=== PATIENT | male | born 1970 | race Caucasian/White ===

== ENCOUNTER 2017-02-07 23:21 | Emergency (ER) | payer BC ==
[2017-02-07 23:30] VITALS: BP 159/99
--- NOTE | 2017-02-07 23:59 | EDM.PDOC ---
ED HPI GENERAL MEDICAL PROBLEM - General Chief Complaint: Laceration Stated Complaint: FELL AND SPLIT HEAD OPEN Time Seen by Provider: 02/07/17 23:35 Source of Information: Reports: Patient History Limitations: Reports: No Limitations - History of Present Illness INITIAL COMMENTS - FREE TEXT/NARRATIVE: This 46 yo male patient reports to the ED with a laceration to his right posterior scalp. The patient reports he was getting into the shower and slipped on some shampoo bottles causing him to fall and hit his head on the toilet. The patient reports he felt light headed for a little while after the fall, but feels better now. The patient applied pressure to the wound and controlled the bleeding prior to arrival in the ED. Onset: Today Duration: Minutes: Location: Reports: Head Quality: Reports: Ache, Dull Severity: Moderate Improves with: Reports: None Worsens with: Reports: None Context: Reports: Trauma Associated Symptoms: Reports: No Other Symptoms Treatments CONTINUOUS IMPROVEMENT INTERN: Reports: Dressing(s) Right Posterior Head Pain Score (Numeric/FACES): 2 - Related Data Allergies Allergy/AdvReac Type Severity Reaction Status Date / Time No Known Allergies Allergy Verified 02/07/17 23:38 Home Meds: Home Meds . [No Known Home Meds] 02/07/17 [History] Social & Family History - Tobacco Use Smoking Status *Q: Unknown Ever Smoked - Caffeine Use Caffeine Use: Reports: None - Recreational Drug Use Recreational Drug Use: No ED ROS GENERAL - Review of Systems Review Of Systems: ROS reveals no pertinent complaints other than HPI. ED EXAM, SKIN/RASH Exam: See Below Exam Limited By: No Limitations General Appearance: Alert, WD/WN, No Apparent Distress Eye Exam: Bilateral Eye: EOMI, Normal Inspection, PERRL Ears: Normal External Exam, Normal Canal, Hearing Grossly Normal, Normal TMs Nose: Normal Inspection, Normal Mucosa, No Blood Throat/Mouth: Normal Inspection, Normal Lips, Normal Teeth, Normal Gums, Normal Oropharynx, Normal Voice, No Airway Compromise Head: Other (The patient has a laceration to the right posterior scalp) Neck: Normal Inspection, Supple, Non-Tender, Full Range of Motion Respiratory/Chest: No Respiratory Distress, Lungs Clear, Normal Breath Sounds, No Accessory Muscle Use, Chest Non-Tender Cardiovascular: Normal Peripheral Pulses, Regular Rate, Rhythm, No Edema, No Gallop, No JVD, No Murmur, No Rub GI/Abdominal: Normal Bowel Sounds, Soft, Non-Tender, No Organomegaly, No Distention, No Abnormal Bruit, No Mass (Male) Exam: Deferred Rectal (Males) Exam: Deferred Back Exam: Normal Inspection, Full Range of Motion, NT Extremities: Normal Inspection, Normal Range of Motion, Non-Tender, No Pedal Edema, Normal Capillary Refill Neurological: Alert, Oriented, CN II-XII Intact, Normal Cognition, Normal Gait, Normal Reflexes, No Motor/Sensory Deficits Psychiatric: Normal Affect, Normal Mood Skin: Warm, Dry, Normal Color, No Rash Location, Skin: Head Characteristics: Linear Lymphatic: No Adenopathy ED SKIN PROCEDURES - Laceration/Wound Repair Right Posterior Head Lac/wound length in cm: 2.5 Appearance: Subcutaneous Distal NVT: Neuro & Vascular Intact Skin Prep: Chlorhexidine (Hibiciens) Exploration/Debridement/Repair: Wound Explored, in a Bloodless Field Closed with: Dale # of Sutures: 11 Drain Placement: No Sterile Dressing Applied: Nurse Tetanus Status Addressed: Yes Complications: No Course - Vital Signs Last Recorded V/S: Last Vital Signs Temp 36.6 C 02/07/17 23:29 Pulse 118 H 02/07/17 23:29 Resp 20 02/07/17 23:29 BP 159/99 H 02/07/17 23:29 Pulse Ox 100 02/07/17 23:29 Departure - Departure Time of Disposition: 23:56 Disposition: Home, Self-Care 01 Condition: fair Clinical Impression: Scalp laceration Qualifiers: Encounter type: initial encounter Qualified Code(s): S01.01XA - Laceration without foreign body of scalp, initial encounter - Discharge Information Instructions: Laceration Care, Adult, [id number] Forms: ED Department Discharge Care Plan Goals: The patient was advised of the examination results during the visit. The patient 's laceration margins were well approximated during the visit. The patient should have the dale removed in 7-10 days. The patient should keep the area clean and dry for the next 24 hours. If the patient has any additional symptoms or concerns, the patient may follow-up with his primary care facility or return to the emergency department.
== END 2017-02-08 00:07 | disposition home or self-care (01) ==
LOC: DL.ED 23:21
DX: S01.01XA Laceration without foreign body of scalp, initial encounter (principal); W18.12XA Fall from or off toilet with subsequent striking against object, initial encounter
CPT/HCPCS: 12001; 99282

== ENCOUNTER 2023-02-26 14:17 | Emergency (ER) | payer OTHER ==
[2023-02-26 15:25] VITALS: BP 121/75; PULSE 109
[2023-02-26 17:09] LABS: AMPHETAMINES,URINE NEGATIVE (NEGATIVE); APPEARANCE,URINE CLEAR (CLEAR); BARBITURATES,URINE NEGATIVE (NEGATIVE); BENZODIAZEPINE,URINE NEGATIVE (NEGATIVE); BILIRUBIN,URINE SMALL (NEGATIVE); COLOR,URINE AMBER (YELLOW); GLUCOSE,URINE NEGATIVE (NEGATIVE); KETONES,URINE 15 (NEGATIVE); LEUKOCYTE ESTERASE,URINE NEGATIVE (NEGATIVE); MDMA (ECSTASY), URINE NEGATIVE (NEGATIVE); METHADONE,URINE NEGATIVE (NEGATIVE); METHAMPHETAMINES,URINE NEGATIVE (NEGATIVE); NITRITE,URINE NEGATIVE (NEGATIVE); OCCULT BLOOD,URINE NEGATIVE (NEGATIVE); OPIATES,URINE NEGATIVE (NEGATIVE); OXYCODONE,URINE NEGATIVE (NEGATIVE); PHENCYCLIDINE,URINE NEGATIVE (NEGATIVE); PROTEIN,URINE TRACE (NEGATIVE); TCA,URINE NEGATIVE (NEGATIVE); UROBILINOGEN,URINE >=8.0 mg/dL (0.2-1.0)
[2023-02-26 17:18] LABS: EOSINOPHILS PERCENT AUTO 1.9 % (1.0-3.0); HEMATOCRIT 41.5 % (40.0-54.0); HEMOGLOBIN 14.4 g/dL (14.0-18.0); INR 1.2 (0.9-1.2); LYMPHOCYTES PERCENT AUTO 24.7 % (20.5-50.1); MEAN CORPUSCULAR HGB CONC 34.7 g/dL (33.0-35.0); MONOCYTES PERCENT AUTO 13.2 % (2-8); NEUTROPHILS PERCENT AUTO 59.2 % (42.2-75.2); PLATELET COUNT,PLT 113 10^3/uL (150-450); PROTHROMBIN TIME 12.1 SEC (9.0-12.0); PTT,PARTIAL THROMBOPLSTIN TIME 27.9 SEC (22.0-34.0); RED BLOOD CELL COUNT 4.37 10^6/uL (4.6-6.2)
[2023-02-26 17:23] LABS: EPITHELIAL CELLS,URINE RARE /HPF (NOT SEEN); HYALINE CASTS,URINE FEW; MUCUS,URINE MODERATE /LPF (NOT SEEN)
[2023-02-26 17:24] LABS: RBC,URINE 0-5 /HPF (0-5)
[2023-02-26 17:25] LABS: AMORPHOUS SEDIMENT,URINE FEW /HPF (NOT SEEN); BACTERIA,URINE RARE /HPF (0-FEW/HPF)
[2023-02-26 17:28] LABS: LACTIC ACID 5.1 mmol/L (0.4-2.0)
[2023-02-26 17:30] LABS: A/G RATIO 0.7; ALBUMIN 3.4 g/dL (3.4-5.0); ANION GAP 16.6 mEq/L (7-13); BILIRUBIN TOTAL 3.6 mg/dL (0.2-1.0); BUN/CREATININE RATIO 7.2 (No establ ref range); C-REACTIVE PROTEIN 1.6 mg/dL (0.0-0.9); CALCIUM 8.5 mg/dL (8.5-10.1); CREATININE 1.11 mg/dL (0.70-1.30); EST CRCL DRUG DOSING (CG) 88.45 mL/min; POTASSIUM,K 2.6 mmol/L (3.5-5.1); PROTEIN TOTAL,TP 8.2 g/dL (6.4-8.2); TSH ULTRASENSITIVE 1.94 uIU/mL (0.36-3.74)
[2023-02-26] MEDS ORDERED: MVI, Adult with Vitamin K 10 ML, Thiamine 100 MG, Folic Acid 1 MG in Lactated Ringers 1... IV ONE ×4 (17:45)
[2023-02-26] MEDS ORDERED: Potassium Chloride 20 MEQ in Premix Bag 1 BAG IV ONE (17:46)
[2023-02-26] MEDS ORDERED: Iopamidol 612 MG/ML 100 ML Bottle IVPUSH ONE (17:55)
[2023-02-26] MEDS ORDERED: Lactated Ringers 1,000 ML IV ONE (18:35)
[2023-02-26] MEDS ORDERED: Potassium Chloride 10% 20 MEQ/15 ML Soln 15 ML UD Cup ONE (18:53)
[2023-02-26] MEDS ORDERED: Potassium Chloride 10 MEQ Tab.ER PO ONE (19:32)
[2023-02-27] MEDS ORDERED: Potassium Chloride 10% 20 MEQ/15 ML Soln 15 ML UD Cup PO ONE (18:35)
== END 2023-02-26 19:52 | disposition home or self-care (01) ==
LOC: DL.ED 14:17
DX: S22.42XA Multiple fractures of ribs, left side, initial encounter for closed fracture (principal); K80.20 Calculus of gallbladder without cholecystitis without obstruction; K70.30 Alcoholic cirrhosis of liver without ascites; E87.20 Acidosis, unspecified; F10.10 Alcohol abuse, uncomplicated; Y90.8 Blood alcohol level of 240 mg/100 ml or more; Y04.0XXA Assault by unarmed brawl or fight, initial encounter
CPT/HCPCS: 36415; 74177; 80053; 80305; 80307; 81001; 82150; 83605; 83690; 83735; 84443; 85025; 85610; 85730; 86140; 96365; 96367; 99284; 99285; A9270; J3411; J3480; J7120; Q9967; J3490

== ENCOUNTER 2024-05-20 07:33 | Emergency (ER) | payer OTHER ==
[2024-05-20 07:47] LABS: HEMATOCRIT 45.6 % (40.0-54.0); HEMOGLOBIN 15.4 g/dL (14.0-18.0); MEAN CORPUSCULAR HEMOGLOBIN 31.2 pg (27.0-34.0); MEAN CORPUSCULAR HGB CONC 33.8 g/dL (33.0-35.0); MEAN CORPUSCULAR VOLUME 92.3 fL (80-100); PLATELET COUNT,PLT 69 10^3/uL (150-450); RED BLOOD CELL COUNT 4.94 10^6/uL (4.6-6.2); WHITE BLOOD CELL COUNT,WBC 46.1 10^3/uL (5.0-10.0)
[2024-05-20] MEDS: fentaNYL 500 MCG in Sodium Chloride 0.9% 50 ML IV SCH (07:50)
[2024-05-20] MEDS: Midazolam 50 MG in Sodium Chloride 0.9% 40 ML IV SCH (07:54)
[2024-05-20 07:57] LABS: BASOPHILS PERCENT AUTO 0.1 % (0.0-1.0); EOSINOPHILS PERCENT AUTO 0.1 % (1.0-3.0); LYMPHOCYTES PERCENT AUTO 3.9 % (20.5-50.1); MONOCYTES PERCENT AUTO 9.4 % (2-8); NEUTROPHILS PERCENT AUTO 86.5 % (42.2-75.2)
[2024-05-20 08:08] LABS: A/G RATIO 0.49; ALANINE AMINOTRANSFERASE,ALT 35 U/L (16-63); ALBUMIN 2.3 g/dL (3.4-5.0); ALKALINE PHOSPHATASE 308 U/L (46-116); ANION GAP 33.9 mEq/L (7-13); ASPARTATE AMNIOTRANSFERASE,AST 110 U/L (15-37); BILIRUBIN TOTAL 5.1 mg/dL (0.2-1.0); BLOOD UREA NITROGEN,BUN 27 mg/dL (7-18); BUN/CREATININE RATIO 10.9 (No establ ref range); CALCIUM 8.9 mg/dL (8.5-10.1); CARBON DIOXIDE,CO2 9 mmol/L (21-32); CHLORIDE,CL 95 mmol/L (98-107); CREATININE 2.47 mg/dL (0.70-1.30); ESTIMATED GFR 30 mL/min (>=60); GLUCOSE RANDOM 101 mg/dL (70-99); POTASSIUM,K 2.9 mmol/L (3.5-5.1); SODIUM,NA 135 mmol/L (136-145)
[2024-05-20 08:11] LABS: INR 1.9 (0.9-1.2); PROTHROMBIN TIME 18.5 SEC (9.0-12.0); PTT,PARTIAL THROMBOPLSTIN TIME 41.6 SEC (22.0-34.0)
[2024-05-20 08:26] LABS: O2 DELIVERY DEVICE VENTILATOR
[2024-05-20] MEDS: Thiamine 200 MG/2 ML MDV IM ONE (08:26)
[2024-05-20 08:34] LABS: LACTIC ACID 18.6 mmol/L (0.4-2.0)
[2024-05-20 08:35] VITALS: BP 142/79; PULSE 137
[2024-05-20 08:36] LABS: BASE EXCESS VENOUS -20.2 mmol/l ((-2)-(+3)); BICARBONATE,VENOUS 11 mmol/l (19-25); O2 SATURATION VENOUS 85.3 % (60-80); PCO2 VENOUS 45 mmHg (41-51); PH,VENOUS 7.03 (7.31-7.41); PO2 VENOUS 83 mmHg (35-42)
[2024-05-20] MEDS: Piperacillin/Tazobactam 2.25 GM in Sodium Chloride 0.9% 50 ML IV ONE (08:36)
[2024-05-20 08:47] LABS: LYMPHOCYTES PERCENT MAN 7 % (20-50); MONOCYTES PERCENT MAN 7 % (2-8); SEG NEUTROPHILS PERCENT MAN 86 % (42-75)
[2024-05-20 08:48] LABS: APPEARANCE,URINE SLIGHTLY CLOUDY (CLEAR); BILIRUBIN,URINE MODERATE (NEGATIVE); COLOR,URINE DARK YELLOW (YELLOW); GLUCOSE,URINE NEGATIVE (NEGATIVE); KETONES,URINE TRACE (NEGATIVE); LEUKOCYTE ESTERASE,URINE NEGATIVE (NEGATIVE); NITRITE,URINE NEGATIVE (NEGATIVE); OCCULT BLOOD,URINE LARGE (NEGATIVE); PROTEIN,URINE 100 (NEGATIVE)
[2024-05-20 08:53] LABS: AMPHETAMINES,URINE NEGATIVE (NEGATIVE); BARBITURATES,URINE NEGATIVE (NEGATIVE); BENZODIAZEPINE,URINE NEGATIVE (NEGATIVE); MDMA (ECSTASY), URINE NEGATIVE (NEGATIVE); METHADONE,URINE NEGATIVE (NEGATIVE); METHAMPHETAMINES,URINE NEGATIVE (NEGATIVE); OPIATES,URINE NEGATIVE (NEGATIVE); OXYCODONE,URINE NEGATIVE (NEGATIVE); PHENCYCLIDINE,URINE NEGATIVE (NEGATIVE); TCA,URINE NEGATIVE (NEGATIVE)
[2024-05-20 08:58] LABS: WBC,URINE 0-5 /HPF (0-5/HPF)
[2024-05-20 08:59] LABS: BACTERIA,URINE MODERATE /HPF (0-FEW/HPF); EPITHELIAL CELLS,URINE FEW /HPF (NOT SEEN); HYALINE CASTS,URINE FEW; MUCUS,URINE OCCASIONAL /LPF (NOT SEEN)
[2024-05-20] MEDS: Potassium Chloride 10 MEQ in Premix Bag 1 BAG IV ONE ×2 (09:00)
[2024-05-20] MEDS: VANCOmycin 1.75 GM/350 ML 350 ML IV ONE (09:00)
[2024-05-20] MEDS: Lactated Ringers 1,000 ML IV SCH (09:28)
[2024-05-20] MEDS: Potassium Chloride 100 ML ONE (09:35)
== END 2024-05-20 09:12 ==
LOC: DL.ED 07:33
DX: I47.10 Supraventricular tachycardia, unspecified (principal); G93.40 Encephalopathy, unspecified; J96.00 Acute respiratory failure, unspecified whether with hypoxia or hypercapnia; D69.6 Thrombocytopenia, unspecified; E87.20 Acidosis, unspecified; E87.6 Hypokalemia; E80.6 Other disorders of bilirubin metabolism; N17.9 Acute kidney failure, unspecified; D72.825 Bandemia; R79.1 Abnormal coagulation profile; F10.10 Alcohol abuse, uncomplicated; Z79.899 Other long term (current) drug therapy
CPT/HCPCS: 31500; 36415; 51702; 70450; 71045; 80053; 80305-QW; 80307; 81001; 82140; 82803; 82947; 83605; 83735; 84484; 85025; 85610; 85730; 87040; 92960; 93005; 93010; 96365; 96367; 96375; 99291; 99291-25; 99292; J2250; J2543; J3010; J3372; J3411; J3480; J3490; J7120